=== PATIENT | male | born 1935 | race Caucasian/White ===

== ENCOUNTER → 2017-03-20 | Day surgery (SDC) | payer MEDICARE ==
[~2017-03-20] MED LIST: ASPI1TAB69 PO; ATOR20TA15 PO; FENO145T2 PO; LACTATED RINGER'S 1000 ML INJ 1,000 ML ONE; LEVEMIR SQ; METO25TA3 PO; MISC-163; MULT-6 PO; NOVOLOGP2 SQ; OMEGCAP PO; PROPOFOL 500 MG/50 ML BTL IV ONE; TERA5CAP3 PO; TRAM50TA PO; WALKER WHEELS/F1 MIS; XARE10TA PO
--- NOTE | 2017-03-20 10:13 | GIPROC ---
[facility] [address], [address] EGD PROCEDURE REPORT EXAM DATE: 03/20/2017 PATIENT NAME: Con Bauman MR #: [id number] BIRTHDATE: 1935 ATTENDING: Taryn Roe MD ORDER #: [id number] CHART PICKER: Amanda Linder INSULATION NOZZLEMAN STATUS: outpatient INDICATIONS: The patient is a 81 yr old male here for an EGD due to dyspepsia and dysphagia PROCEDURE PERFORMED: EGD w/ biopsy EGD w/ dilation of esophagus via guidewire MEDICATIONS: None and Per Anesthesia. TOPICAL ANESTHETIC: none CONSENT: The patient understands the risks and benefits of the procedure and understands that these risks include, but are not limited to: sedation, allergic reaction, infection, perforation and/or bleeding. Alternative means of evaluation and treatment include, among others: physical exam, x-rays, and/or surgical intervention. The patient elects to proceed with this endoscopic procedure. medical equipment was checked for proper function. Hand hygiene and appropriate measures for infection prevention was taken. After the risks, benefits and alternatives of the procedure were thoroughly explained, Informed consent was verified, confirmed and timeout was successfully executed by the treatment team. The patient was anesthetized with topical anesthesia and the EC-3490Li ([id number]) endoscope was introduced through the mouth and advanced to the second portion of the duodenum. Retroflexed views revealed no abnormalities The gastroscope was then slowly withdrawn and removed. Distal esophageal stricture s/p dilation size 17 mm. Small gastric ulcer in the antrum Bx done was ozzing from Bx and ablation was heat was done blood loss 5 cc. The endoscopy was otherwise normal. ADVERSE EVENTS: There were no complications. IMPRESSIONS: 1. Distal esophageal stricture s/p dilation size 17 mm 2. Small gastric ulcer in the antrum Bx done was ozzing from Bx and ablation was heat was done blood loss 5 cc 3. Normal endoscopy otherwise 4. Retroflexed views revealed no abnormalities RECOMMENDATIONS: 1. Await biopsy results. Biopsy results will not be ready for 7-10 days. If you don't hear from us in two weeks, call our office for biopsy results. 2. Anti-reflux regimen 3. Start PPI 4. Avoid NSAIDS PATIENT CONDITION: stable DISPOSITION: Home REPEAT EXAM: Return 2 months EGD Taryn Roe MD eSigned: Taryn Roe MD 03/20/2017 10:12 AM cc: Darci Torres M.D.
--- NOTE | 2017-03-20 10:15 | GIPROC ---
[facility] [address] [facility], [address] COLONOSCOPY PROCEDURE REPORT EXAM DATE: 03/20/2017 PATIENT NAME: Con Bauman MR #: [id number] BIRTHDATE: 1935 ENDOSCOPIST: Taryn Roe MD ORDER #: [id number] BAG PRESS OPERATOR: Amanda Linder SOFT IRON INSPECTOR STATUS: outpatient INDICATIONS: The patient is a 81 yr old male here for a colonoscopy due to high risk patient with personal history of colonic polyps and high risk patient with personal history of colon cancer PROCEDURE PERFORMED: Colonoscopy, surveillance MEDICATIONS: None and Per Anesthesia. PREP QUALITY: good ESTIMATED BLOOD LOSS: None CONSENT: The patient understands the risks and benefits of the procedure and understands that these risks include, but are not limited to: sedation, allergic reaction, infection, perforation and/or bleeding. Alternative means of evaluation and treatment include, among others: physical exam, x-rays, and/or surgical intervention. The patient elects to proceed with this endoscopic procedure. medical equipment was checked for proper function. Hand hygiene and appropriate measures for infection prevention was taken. After the risks, benefits and alternatives of the procedure were thoroughly explained, Informed consent was verified, confirmed and timeout was successfully executed by the treatment team. A digital exam revealed no abnormalities of the rectum The EC-3490Li ([id number]) and EC-3490Li ([id number]) endoscope was introduced through the anus and advanced to the cecum, which was identified by both the appendix and ileocecal valve. The instrument was then slowly withdrawn as the colon was fully examined. COLON FINDINGS: The colonic mucosa appeared normal. Retroflexed views revealed small internal hemorrhoids The scope was then completely withdrawn from the patient and the procedure terminated. PROCEDURE WITHDRAWAL TIME:7minutes ADVERSE EVENTS: There were no complications. IMPRESSIONS: 1. The colonic mucosa appeared normal 2. Retroflexed views revealed small internal hemorrhoids 3. Revealed no abnormalities of the rectum RECOMMENDATIONS: 1. Yearly hemoccult 2. High fiber diet RECALL: Return 2 years Colonoscopy Taryn Roe MD eSigned: Taryn Roe MD 03/20/2017 10:14 AM cc: Darci Torres M.D.
== END | disposition home or self-care (01) ==
LOC: ESDC 08:05
PROVIDERS: ATTEND Hospitalist
DX: R10.13 Epigastric pain (principal); Z85.038 Personal history of other malignant neoplasm of large intestine; Z86.010 Personal history of colon polyps; R13.10 Dysphagia, unspecified; K22.2 Esophageal obstruction; K25.9 Gastric ulcer, unspecified as acute or chronic, without hemorrhage or perforation
CPT/HCPCS: 00740; 00810; 43239; 43248; 45378; 88305; 88312; J7120

== ENCOUNTER → 2017-06-21 | Day surgery (SDC) | payer MEDICARE ==
[~2017-06-21] MED LIST changes: -LACTATED RINGER'S 1000 ML INJ 1,000 ML ONE; +PROPOFOL 200 MG/20 ML AMP IV ONE; -PROPOFOL 500 MG/50 ML BTL IV ONE
--- NOTE | 2017-06-21 08:48 | GIPROC ---
[facility] [address] [facility], [address] EGD PROCEDURE REPORT EXAM DATE: 06/21/2017 PATIENT NAME: Con Bauman MR #: [id number] BIRTHDATE: 1935 ATTENDING: Latricia Molina MD ORDER #: [id number] PLACEMENT INTERVIEWER: Steff Krueger RN STATUS: outpatient INDICATIONS: The patient is a 82 yr old male here for an EGD due to follow up on ulcer PROCEDURE PERFORMED: EGD w/ biopsy MEDICATIONS: None and Per Anesthesia. TOPICAL ANESTHETIC: CONSENT: The patient understands the risks and benefits of the procedure and understands that these risks include, but are not limited to: sedation, allergic reaction, infection, perforation and/or bleeding. Alternative means of evaluation and treatment include, among others: physical exam, x-rays, and/or surgical intervention. The patient elects to proceed with this endoscopic procedure. medical equipment was checked for proper function. Hand hygiene and appropriate measures for infection prevention was taken. After the risks, benefits and alternatives of the procedure were thoroughly explained, Informed consent was verified, confirmed and timeout was successfully executed by the treatment team. The patient was anesthetized with topical anesthesia and the EG-[id number] ([id number]) endoscope was introduced through the mouth and advanced to the second portion of the duodenum. Retroflexed views revealed no abnormalities The gastroscope was then slowly withdrawn and removed. ESOPHAGUS: There was LA Class A esophagitis noted. A biopsy was performed using cold forceps. Sample sent for histology. STOMACH: There was erythematous moderate gastritis in the gastric antrum. A biopsy was performed using cold forceps. Sample sent for histology. DUODENUM: The duodenal mucosa appeared normal in the bulb and second portion of the duodenum. ADVERSE EVENTS: There were no complications. IMPRESSIONS: 1. There was LA Class A esophagitis noted; biopsy was performed 2. There was erythematous gastritis in the gastric antrum; biopsy was performed 3. Normal duodenal mucosa in the bulb and second portion of the duodenum 4. Retroflexed views revealed no abnormalities RECOMMENDATIONS: 1. Await biopsy results. Biopsy results will not be ready for 7-10 days. If you don't hear from us in two weeks, call our office for biopsy results. 2. Anti-reflux regimen 3. Continue PPI 4. Avoid NSAIDS PATIENT CONDITION: stable DISPOSITION: Home REPEAT EXAM: Return 3 years EGD pending biopsy results Latricia Molina MD eSigned: Latricia Molina MD 06/21/2017 8:48 AM cc: Iris Greer [facility] Sara Torres M.D. PATIENT NAME: Mitul Con Uriel MR#: [id number]
== END | disposition home or self-care (01) ==
LOC: ESDC 06:52
PROVIDERS: ATTEND Internal Medicine Gastroenterology
DX: K25.9 Gastric ulcer, unspecified as acute or chronic, without hemorrhage or perforation (principal); K20.9 Esophagitis, unspecified; K29.70 Gastritis, unspecified, without bleeding; E11.9 Type 2 diabetes mellitus without complications; Z79.4 Long term (current) use of insulin
CPT/HCPCS: 82948; 88305; 88312